=== PATIENT | female | born 1955 | race Caucasian/White ===

== ENCOUNTER 2018-06-06 11:22 | Outpatient (CLI) | payer MEDICARE | END 2018-06-06 23:59 | disposition home or self-care (01) | LOC: VAS 11:22 | PROVIDERS: ATTEND Internal Medicine Cardiovascular Disease | DX: I65.23 Occlusion and stenosis of bilateral carotid arteries (principal); R42 Dizziness and giddiness; R40.4 Transient alteration of awareness | CPT/HCPCS: 93880 ==